=== PATIENT | male | born 1955 | race Caucasian/White ===

== ENCOUNTER 2024-07-21 16:01 | Emergency (ER) | payer BC, OTHER ==
[~2024-07-21] VITALS: Ht 177.8 cm; Wt 86.2 kg
[~2024-07-21 16:01] MED LIST: OMEP20TA20 PO
[2024-07-21 16:17] VITALS: BP 154/117; TEMP 99; O2SAT 99
[2024-07-21] MEDS: CEPHALEXIN MONOHYDRATE 500 MG CAPSULE PO ONE (16:30)
[2024-07-21] MEDS ORDERED: LIDOCAINE 2% 20 ML MDV ONE (16:31)
[2024-07-21] MEDS ORDERED: TDAP [DIPH/PERTUSSIS/TET] 0.5 ML VIAL IM ONE (16:36)
[2024-07-21] MEDS ORDERED: CEPHALEXIN MONOHYDRATE 500 MG CAPSULE PO ONE (16:36)
[2024-07-21] MEDS: TDAP [DIPH/PERTUSSIS/TET] 0.5 ML VIAL IM ONE (16:41)
[2024-07-21] MEDS ORDERED: CEPH500C2 PO (17:29)
== END 2024-07-21 17:45 | disposition home or self-care (01) ==
LOC: ER 16:13
DX: S61.214A Laceration without foreign body of right ring finger without damage to nail, initial encounter (principal); K21.9 Gastro-esophageal reflux disease without esophagitis; Z60.2 Problems related to living alone; X58.XXXA Exposure to other specified factors, initial encounter; Y93.89 Activity, other specified; Y92.89 Other specified places as the place of occurrence of the external cause; Y99.8 Other external cause status
CPT/HCPCS: 12002; 90471; 90715; 99283; A6403; J3490